=== PATIENT | female | born 1955 | race Caucasian/White ===

== ENCOUNTER 2017-03-08 10:06 | Observation (INO) | payer BC ==
[2017-03-08 10:49] LABS: #Basophils 0.1 thou/uL (0.0-0.2); #Eosinphils 0.1 thou/uL (0.0-0.7); #Lymphocytes 1.8 thou/uL (1.20-3.40); #Monocytes 0.5 thou/uL (0.11-0.59); #Neutrophils 5.1 thou/uL (1.40-6.50); %Basophils 1.1 % (0.0-1.0); %Eosinophils 1.7 % (0.0-10.0); %Neutrophils 67.2 % (42.0-75.0); Hemoglobin 13.9 g/dL (12.0-16.0); Mean Corpuscular HGB CONC 34.6 g/dL (32.0-36.0); Mean Corpuscular Hemoglobin 31.2 pg (27.0-31.0); Mean Corpuscular Volume 90.2 fl (81.0-99.0); Mean Platelet Volume 7.2 fL (7.4-10.4); Platelet Count 188 thou/uL (130-400); RBC Distribution Width 11.3 % (11.5-14.5); Red Blood Cell (RBC) Count 4.45 mill/uL (4.20-5.40); White Blood Cell (WBC) Count 7.6 thou/uL (4.8-10.8)
[2017-03-08 10:57] LABS: ALT (SGPT) 27 U/L (8-55); AST (SGOT) 24 U/L (5-34); Albumin 4.4 g/dL (3.5-5.0); Alkaline Phosphatase 65 U/L (40-150); Anion Gap 13 mmol/L (10-20); BUN (Urea Nitrogen) 14 mg/dL (9.8-20.1); Bilirubin, Total 0.3 mg/dL (0.2-1.2); CK (CPK) 56 U/L (29-168); Calc. Creatinine Clearance 0 mL/min (70-130); Calcium 9.9 mg/dL (7.8-10.44); Carbon Dioxide 29 mmol/L (22-29); Chloride 105 mmol/L (98-107); Estimated GFR-MDRD 76; Glucose 86 mg/dL (70-105); Potassium 3.9 mmol/L (3.5-5.1); Protein, Total 7.4 g/dL (6.0-8.3); Sodium 143 mmol/L (136-145)
[2017-03-08 10:58] LABS: CKMB 0.9 ng/mL (0-6.6); Troponin I Less than 0.010 ng/mL (< 0.028)
[2017-03-08] MEDS ORDERED: Aspirin 325 MG TAB ONE (11:22)
[2017-03-08 11:28] LABS: PTT 25.9 SEC (22.9-36.1); Prothrombin Time 13.3 SEC (12.0-14.7)
--- NOTE | 2017-03-08 11:35 | CT ---
CT BRAIN WITHOUT CONTRAST: HISTORY: Left-sided facial droop. FINDINGS: No evidence of infarct, hemorrhage, midline shift, or abnormal extraaxial fluid collections are seen. The ventricular size is normal and the basilar cisterns are patent. The bony calvarium is intact. The visualized paranasal sinuses and mastoid air cells are well aerated. IMPRESSION: No acute intracranial process. POS: [facility]
--- NOTE | 2017-03-08 11:36 | RAD ---
RADIOGRAPH CHEST 1 VIEW: DATE: 03/08/17. TIME: 10:43 a.m. HISTORY: A 61-year-old female with altered mental status. COMPARISON: 10/08/16. FINDINGS: There are no air space densities, pulmonary edema, pneumothorax, or cardiomegaly. The lateral costop hrenic angles are sharp. There is a dual-lead left subclavian pacemaker. There is no interval baez e overall. IMPRESSION: 1. No acute cardiopulmonary findings. 2. Pacemaker. lakeisha Almanza POS: [facility]
[2017-03-08 13:07] VITALS: BMI 21.9
[2017-03-08] MEDS ORDERED: Ondansetron HCl/PF 4 MG/2 ML Vial IVP PRN (15:13)
[2017-03-08] MEDS ORDERED: Mag-Al 1200 mg/1200 mg/30 ML UDCUP PO PRN (15:13)
[2017-03-08] MEDS ORDERED: Ondansetron ODT 4 MG TAB PO PRN (15:13)
[2017-03-08] MEDS ORDERED: hydrALAZINE 20 MG/ML VIAL SLOW IVP PRN (15:13)
[2017-03-08] MEDS ORDERED: Temazepam 15 MG CAP PO PRN (15:13)
--- NOTE | 2017-03-08 15:19 | HP ---
PRIMARY CARE PHYSICIAN: Dr. Alonzo Sierra. CHIEF COMPLAINT: Left-sided facial numbness. HISTORY OF PRESENT ILLNESS: Ms. Munguia is a pleasant 61-year-old female that has a history of hypothyr oidism and sinus bradycardia. She is status post pacemaker placement. She says that yesterday davie huff she went to bed feeling fine and then this morning she woke up with some numbness on the left side of her face, primarily across the upper part of her lip and on the area of her face under the eye. She says that her eyes felt a bit watery and she does mention that she woke up in the middle of the n ight with some pain across her jaw and forehead, but otherwise no other symptoms. She denies any wea kness in her arms or legs or feeling any numbness. She denies currently any headache or dizziness, n o nausea, no vomiting. She does admit to having some cold symptoms last week and some fever like sym ptoms apparently a week ago, but no other complaints. She continues to have this numbness on the altagracia e of her face as well as a slight droop. She says on her lip, on that side as well. REVIEW OF SYSTEMS: CONSTITUTIONAL: Again, she had some fevers last week and cold symptoms, no night sweats, no weight loss. HEENT: She has had some watering in the left eye, but no sore throat, no r hinorrhea, neck pain, no adenopathy. PULMONARY: No hemoptysis, no cough, no wheezing. CARDIOVASCUL AR: She denies any chest pain, no shortness of breath, no PND, no orthopnea. GASTROINTESTINAL: No abdominal pain, no nausea, no vomiting, no change in bowels. GENITOURINARY: No urinary frequency, h ematuria, no hesitancy. NEUROLOGIC: As of the history of present illness with no seizures. PSYCHIA TRIC: No symptoms of anxiety or depression. SKIN AND INTEGUMENT: No skin changes. No rash. PAST MEDICAL HISTORY: Significant for sinus bradycardia status post pacemaker placement. She does s ay she has a pacemaker which the MRI says. She has a history of hypothyroidism. PAST SURGICAL HISTORY: She has had uterine ablation, appendectomy and septal repair. ALLERGIES: PENICILLIN and SULFA. FAMILY HISTORY: Significant for hypertension, pancreatic cancer in her mother and cerebral aneurysm in her father. SOCIAL HISTORY: She is a nonsmoker, nondrinker. CURRENT MEDICATION: Include Levoxyl 37.5 mcg daily. PHYSICAL EXAMINATION: GENERAL: She is alert and oriented. She appears to be in no acute distress. VITAL SIGNS: Her blood pressure was 134/68, heart rate 63, respiratory rate of 16, temperature is 97 .7. HEENT: Her pupils are equal, round, and reactive. Extraocular muscles are intact. Her sclerae are anicteric. Throat: There is no erythema, no exudates. Uvula is midline. NECK: No adenopathy, no bruits. LUNGS: Clear to auscultation. There is no wheezing, no rales. CARDIOVASCULAR: She has a normal S1, S2. I did not appreciate an S3 or S4. No murmurs, clicks or r ubs. ABDOMEN: Soft, it is nontender, nondistended. Positive for bowel sounds. No rebound, no guarding. EXTREMITIES: There is no edema. Her cranial nerves; she did have some mild seventh nerve palsy and her eyelid is weak on the left than on the right and she has a mild facial droop. Her muscle strengt h; however, is 5/5 in her upper and lower extremities. LABORATORY DATA AND IMAGING DATA: Her chemistry panel is completely normal. Her CBC; white blood ce ll count is 7.6, hemoglobin 13.9, hematocrit is 40.2, platelet count is 188. INR is 1.0. She also h ad a CT scan of the brain which showed no acute intracranial process. ASSESSMENT: This is a 61-year-old female that presents with some left-sided facial numbness as well as some facial weakness which has persisted since this morning. She was able to lift both eyebrows a nd close the left eye; however, it does appear to be a bit weaker than on the right, so it is possibl e that she may have an incomplete Flores's palsy or seventh nerve palsy. However, stroke cannot be com pletely ruled out. She also has a family history of aneurysm in that her father of a cerebral a neurysm. Therefore, evaluation for aneurysm is also warranted. She will be placed in observation. We will get an MRI and MR angiogram of the brain. This will need to be coordinated with [employer], s o that they can reprogram her pacemaker, so she can safely undergo the MRI. She has had a recent ech o, and therefore, this will not be repeated; however, we will also get carotid Dopplers and lipid pro file and further recommendations based on that.
[2017-03-08] MEDS: Acetaminophen 325 MG TAB PO PRN (20:49)
--- NOTE | 2017-03-08 21:57 | ULT ---
CAROTID DUPLEX ULTRASOUND: Indication: Sudden onset of facial weakness. FINDINGS: Peak systolic velocity within the right ICA was 86 cm/sec and right CCA 89.9 cm/sec for a right ICA/C CA ratio of 0.96. Peak systolic velocity within the left ICA was 94.2 cm/sec and left CCA 88.4 cm/sec for a left ICA/CC A ratio of 1.07. Antegrade flow was seen in both vertebral arteries. IMPRESSION: No hemodynamically significant stenosis demonstrated. POS: [facility]
[2017-03-09] MEDS ORDERED: Levothyroxine Sodium 25 MCG TAB PO SCH (06:00)
[2017-03-09 06:02] LABS: Cardiac Risk 3.5 (Less than 4.5)
[2017-03-09 06:27] LABS: Thyroid Stimulating Hormone 2.6014 uIU/mL (0.35-4.94)
[2017-03-09] MEDS ORDERED: Aspirin 325 mg Enteric Coated Tablet PO SCH (09:00)
[2017-03-09] MEDS: Acetaminophen 325 MG TAB PO PRN ×2 (09:30→14:37)
--- NOTE | 2017-03-09 14:55 | MRI ---
BRAIN MRI WITHOUT CONTRAST: CLINICAL HISTORY: Left facial weakness. COMPARISON: Reference made to 03/08/[address] FINDINGS: No acute territorial infarction, mass effect, midline shift, or ventriculomegaly. There are a few sc attered nonspecific foci of signal alteration bilaterally, which may be on the basis of mild chronic microvascular ischemic disease. The imaged skull base flow voids are patent. There is mild mucosal thickening of the paranasal sinuses. IMPRESSION: 1. No acute territorial infarction or mass effect. 2. Findings that may relate to minimal chronic microvascular ischemic disease of the cerebral white matter. POS: [facility]
--- NOTE | 2017-03-09 15:24 | MRI ---
MR ANGIOGRAM OF THE HEAD: 03/09/2017 HISTORY: Left-sided facial weakness. COMPARISON: None. TECHNIQUE: Routine noncontrast enhanced, [id number] MR angiography of the brain obtained. FINDINGS: Antegrade blood flow noted within the imaged distal vertebral arteries. The basilar artery is normal in course and caliber. Branches of the basilar artery appear within normal limits. There is no sac cular aneurysm, high grade stenosis, or vascular occlusion involving the posterior circulation. Imaged extracranial ICA appears unremarkable. The A1 segment and distal RIAN branches are unremarkabl e. The region of the anterior communicating artery is slightly limited on the basis of motion artifa ct. The ICA bifurcation, M1 segment, and MCA bifurcation appears within normal limits. The distal M CA branches appear unremarkable. IMPRESSION: Unremarkable MR angiogram of the head. POS: [facility]
[2017-03-09 17:24] VITALS: BP 96/56; TEMP 98.3
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
--- NOTE | 2017-03-10 09:18 | DIS ---
DATE OF DISCHARGE: 03/09/2017 DISCHARGE DISPOSITION: Home. FOLLOWUP: Follow up with primary care physician, Dr. Srivastava in 1 week. ALLERGIES: The patient is allergic to PENICILLIN and SULFA. The patient was seen on the day of discharge, denies any new focal deficits. DISCHARGE MEDICATIONS: 1. Aspirin 81 mg daily. 2. Levothyroxine 37.5 mcg daily. 3. Medrol Dosepak. 4. Protonix while on Medrol Dosepak. 5. Artificial Tears as needed. INPATIENT CONSULTANTS: Neurology, Dr. Porras. BRIEF HOSPITAL COURSE: The patient is a 61-year-old female with sinus bradycardia status post pacema ker and hypothyroidism who presented to the hospital with left-sided facial numbness. Please refer t o the history and physical dated 03/08/2017 for further details. The patient was admitted to the hospital with the diagnosis of suspected stroke. MRI and MRA of the brain was unremarkable except for minimal chronic microvascular ischemic disease. Carotid Doppler wa s negative for hemodynamically significant stenosis. The patient was seen by Neurology, Dr. Porras. Per Neurology, her symptoms are probably related to viral related cranial neuropathy. She has been started on Medrol Dosepak. She has been cleared by Neurology for discharge. FINAL DIAGNOSES: 1. 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 2. Chronic kidney disease stage 2. 3. Hypothyroidism. 4. Sick sinus syndrome, status post pacemaker. Plan of care was discussed with the patient. She stated understanding.
--- NOTE | 2017-04-17 18:58 | EKG ---
Test Reason : Blood Pressure : / mmHG Vent. Rate : 059 BPM Atrial Rate : 059 BPM P-R Int : 186 ms QRS Dur : 080 ms QT Int : 404 ms P-R-T Axes : 094 071 060 degrees QTc Int : 399 ms Electronic atrial pacemaker Confirmed by JODI HOROWITZ, NICO Lopez ([id number]), editor house organ HEATHER SWANN ([id number]) on 04/17/2017 6:58:04 PM Referred By: Confirmed By:NICO ZAPATA MD
== END 2017-03-09 17:23 | disposition home or self-care (01) ==
LOC: SCSER 10:06 → 2SW 12:50 → 2NO 03-09 13:00 → 2SW 03-09 13:16
PROVIDERS: ADMIT Internal Medicine; ATTEND Internal Medicine
DX: R20.0 Anesthesia of skin (principal); R29.810 Facial weakness; N18.2 Chronic kidney disease, stage 2 (mild); E03.9 Hypothyroidism, unspecified; I49.5 Sick sinus syndrome; Z79.82 Long term (current) use of aspirin; Z79.899 Other long term (current) drug therapy; Z88.0 Allergy status to penicillin; Z88.2 Allergy status to sulfonamides; Z95.0 Presence of cardiac pacemaker; Z90.49 Acquired absence of other specified parts of digestive tract; Z98.890 Other specified postprocedural states; Z82.49 Family history of ischemic heart disease and other diseases of the circulatory system
CPT/HCPCS: 36415; 70450; 70544; 70551; 71045; 80053; 80061; 82553; 84439; 84443; 84484; 85025; 85610; 85730; 93005; 93880; 94760; G0378

== ENCOUNTER 2017-07-01 15:47 | Outpatient (CLI) | payer BC | END 2017-07-01 15:48 | disposition home or self-care (01) | LOC: BICMAMMO 15:47 | PROVIDERS: ATTEND Physician Assistant | DX: Z12.31 Encounter for screening mammogram for malignant neoplasm of breast (principal); Z80.3 Family history of malignant neoplasm of breast | CPT/HCPCS: 77063; 77067 ==

== ENCOUNTER 2018-01-13 06:10 | Day surgery (SDC) | payer BC ==
[2018-01-12 09:25] VITALS: BMI 22.1
[~2018-01-13 06:10] MED LIST: Cyclopentolate 1% Opth Drop 2 ML BOT FS SCH; Fluorouracil 100 MG, Enoxaparin Sodium 25 MG, EPINEPHrine 0.3 MG in Ophthalmic Irrigati... FS SCH; Phenylephrine 2.5% Ophth Soln 5 ML BOT FS SCH
[2018-01-13] MEDS ORDERED: Fentanyl 100 MCG/2 ML VIAL ONE (06:45)
[2018-01-13] MEDS ORDERED: Midazolam HCl 2 mg/2 ml Vial ONE (06:45)
[2018-01-13] MEDS ORDERED: Cyclopentolate 1% Opth Drop 2 ML BOT ONE (06:51)
[2018-01-13] MEDS ORDERED: Phenylephrine 2.5% Ophth Soln 5 ML BOT ONE (06:51)
[2018-01-13] MEDS ORDERED: Indocyanine Green 25 MG/10 ML VIAL ONE (10:33)
[2018-01-13] MEDS ORDERED: Maxitrol 0.1% Opth Oint 3.5 GM TUBE ONE (10:33)
[2018-01-13] MEDS ORDERED: Lidocaine 4% PF 5 ML AMP ONE (10:33)
[2018-01-13] MEDS ORDERED: CEFAZOLIN 1 GM VIAL ONE (10:33)
[2018-01-13] MEDS ORDERED: PROPOFOL 200 MG/20 ML VIAL ONE (10:33)
[2018-01-13] MEDS ORDERED: Lidocaine 1% PF 5 ML VIAL ONE (10:33)
[2018-01-13] MEDS ORDERED: Triamcinolone 40 MG/ML VIAL ONE (10:33)
[2018-01-13] MEDS ORDERED: Bupivacaine 0.75% 10 ML AMP ONE (10:33)
--- NOTE | 2018-03-02 22:51 | OP ---
DATE OF PROCEDURE: 01/13/2018 PREOPERATIVE DIAGNOSIS: Macular hole, left eye. POSTOPERATIVE DIAGNOSIS: Macular hole, left eye. PROCEDURE PERFORMED: Pars plana vitrectomy, internal limiting membrane peel, left eye. ANESTHESIA: Local with monitored anesthesia care. DESCRIPTION OF PROCEDURE: The patient was identified in the preoperative holding area. Appropriate informed consent for planned surgical procedure on the left eye had been obtained. The patient was transported to the operative suite, where appropriate cardiopulmonary monitoring was established. Local anesthesia was obtained using retrobulbar modified Van Lint lid block using 50:50 mixture of 4% lidocaine and 0.75% bupivacaine. The patient was prepped and draped in usual sterile manner for ophthalmic surgery in left eye. Lid speculum was placed in the left eye. A 25-gauge trocar was placed through conjunctiva and sclera superotemporally, inferotemporally, and supranasally. Infusion line was placed inferotemporally. Light pipe vitreous cutter was inserted into the eye. Core vitrectomy was performed. Indocyanine green dye was infused on to the posterior pole x2, identifying the internal limiting membrane. This was elevated using membrane scraper and peeled across the macula using end-gripping forceps. Indirect ophthalmoscope was used to exam the retina 360 degrees. No holes, breaks, or tears were identified. Laser was placed behind the sclerotomy sites. Complete air-fluid exchange was performed. 10 minutes was allowed for fluid to drain posteriorly. 28% sulfur hexafluoride gas was infused into the eye. Superior sclerotomies were suture closed. Retrobulbar Kenalog and subconjunctival Ancef were placed. Atropine antibiotic ointment was placed and the eye was patched and shielded. The patient was taken to the postop recovery unit in good condition, having suffered no immediate perioperative complications. The patient was instructed to keep the patch and shield on, avoid lifting and bending, avoid flat and back positioning. Followup appointment with Dr. Doyle. Job ID: [id number]
== END 2018-01-13 08:55 | disposition home or self-care (01) ==
LOC: SDC 06:10
PROVIDERS: ATTEND Ophthalmology Retina Specialist
PROC: 08953ZZ Drainage of Left Vitreous, Percutaneous Approach (ICD-10-PCS; principal; 2018-01-13)
DX: H35.342 Macular cyst, hole, or pseudohole, left eye (principal); Z79.82 Long term (current) use of aspirin; Z79.899 Other long term (current) drug therapy; Z88.0 Allergy status to penicillin; Z88.2 Allergy status to sulfonamides
CPT/HCPCS: 67025; J0171; J0690; J1650; J2001; J2250; J2704; J3010; J3301; J3490; J9190

== ENCOUNTER 2018-04-03 15:08 | Emergency (ER) | payer BC ==
[2018-04-03] MEDS ORDERED: Ketorolac Tromethamine 30 MG/ML VIAL ONE ×2 (16:28→16:29)
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
== END 2018-04-03 17:05 | disposition home or self-care (01) ==
LOC: ERS 15:08
DX: S16.1XXA Strain of muscle, fascia and tendon at neck level, initial encounter (principal); S39.012A Strain of muscle, fascia and tendon of lower back, initial encounter; E03.9 Hypothyroidism, unspecified; Z79.899 Other long term (current) drug therapy; V43.62XA Car passenger injured in collision with other type car in traffic accident, initial encounter
CPT/HCPCS: 70450; 72125; 72131; 96372; J1885